=== PATIENT | male | born 1940 | race African-American/Black ===

== ENCOUNTER 2017-10-04 20:45 | Emergency (ER) | payer MEDICARE, OTHER ==
[2017-10-04 22:17] LABS: Troponin I Less than 0.010 ng/mL (< 0.028)
[2017-10-04] MEDS ORDERED: Aspirin 325 MG TAB ONE (22:20)
== END 2017-10-05 00:14 | disposition short-term general hospital (02) ==
LOC: ERS 20:45
DX: R07.9 Chest pain, unspecified (principal); E11.9 Type 2 diabetes mellitus without complications; K21.9 Gastro-esophageal reflux disease without esophagitis; E78.5 Hyperlipidemia, unspecified; I10 Essential (primary) hypertension; E66.9 Obesity, unspecified; Z79.899 Other long term (current) drug therapy; Z79.4 Long term (current) use of insulin
CPT/HCPCS: 36415; 93005

== ENCOUNTER 2021-06-28 09:29 | Inpatient (IN) | payer MEDICARE, MEDICAID ==
[2021-06-28] MEDS ORDERED: Acetaminophen 650 MG Suppository PR PRN (15:15)
[2021-06-28] MEDS ORDERED: hydrALAZINE 20 MG/ML VIAL SLOW IVP PRN (15:19)
[2021-06-28 15:23] VITALS: BMI 42.5
[2021-06-28] MEDS ORDERED: Cefepime 1 GM VIAL IVPB SCH (15:30)
[2021-06-28] MEDS ORDERED: Ondansetron PF 4 MG/2 ML Vial IVP PRN (16:42)
[2021-06-28] MEDS: Carvedilol 6.25 MG TAB PO SCH (18:14)
[2021-06-28] MEDS: Cefepime 2 GM in Sodium Chloride 0.9% 100 ML IVPB SCH (18:15)
[2021-06-28] MEDS ORDERED: fentaNYL Citrate/PF 100 MCG/2 ML SYRINGE ONE (19:43)
[2021-06-28] MEDS ORDERED: Phenylephrine 10 MG/ML VIAL ONE (19:44)
[2021-06-28] MEDS ORDERED: Lidocaine 1% PF 5 ML VIAL ONE (20:24)
[2021-06-28] MEDS ORDERED: Rocuronium Bromide 10 MG/ML (10ML VIAL) ONE (20:24)
[2021-06-28] MEDS ORDERED: PROPOFOL 200 MG/20 ML VIAL ONE (20:24)
[2021-06-28] MEDS ORDERED: CEFAZOLIN 1 GM VIAL ONE (20:50)
[2021-06-28] MEDS ORDERED: SUGAMMADEX SODIUM 200 MG/2 ML VIAL ONE (21:14)
[2021-06-28] MEDS ORDERED: Ondansetron HCl/PF 4 MG/2 ML Vial IVP PRN (21:38)
[2021-06-28] MEDS ORDERED: Promethazine HCl 25 MG/ML VIAL IM PRN (21:38)
[2021-06-28] MEDS ORDERED: Promethazine HCl 25 MG/ML VIAL IVPB PRN (21:38)
[2021-06-28] MEDS ORDERED: hydrALAZINE 20 MG/ML VIAL ONE (22:28)
[2021-06-28] MEDS ORDERED: Labetalol HCl 100 MG/20 ML VIAL ONE (22:48)
[2021-06-29] MEDS: Vancomycin HCl 1.75 GM in Sodium Chloride 0.9% 500 ML IVPB SCH ×2 (01:16→15:35)
[2021-06-29] MEDS: Acetaminophen 325 MG TAB PO PRN ×2 (01:16→21:17)
[2021-06-29] MEDS ORDERED: VANCOMYCIN 1.75 GM/350 ML BAG IVPB SCH (02:00)
[2021-06-29 04:35] LABS: #Basophils 0.1 thou/uL (0.0-0.2); #Monocytes 1.7 thou/uL (0.11-0.59); #Neutrophils 9.3 thou/uL (1.40-6.50); %Basophils 0.8 % (0.0-1.0); %Eosinophils 0.3 % (0.0-10.0); %Lymphocytes 20.9 % (21.0-51.0); Hemoglobin 12.1 g/dL (14.0-18.0); Mean Corpuscular HGB CONC 32.1 g/dL (32.0-36.0); Mean Corpuscular Hemoglobin 27.1 pg (27.0-31.0); Mean Corpuscular Volume 84.5 fL (78.0-98.0); Mean Platelet Volume 9.8 fL (7.4-10.4); Platelet Count 158 thou/uL (130-400); RBC Distribution Width 14.8 % (11.5-14.5); Red Blood Cell (RBC) Count 4.45 mill/uL (4.70-6.10); White Blood Cell (WBC) Count 14.2 thou/uL (4.8-10.8)
[2021-06-29 04:49] LABS: ALT (SGPT) 12 U/L (8-55); AST (SGOT) 18 U/L (5-34); Albumin 3.2 g/dL (3.4-4.8); Alkaline Phosphatase 71 U/L (40-110); Anion Gap 15 mmol/L (10-20); BUN (Urea Nitrogen) 8 mg/dL (8.4-25.7); Calc. Creatinine Clearance 175 mL/min (70-130); Calcium 8.5 mg/dL (7.8-10.44); Carbon Dioxide 19 mmol/L (23-31); Chloride 106 mmol/L (98-107); Globulin 2.9 g/dL (2.4-3.5); Glucose 152 mg/dL (83-110); Potassium 3.1 mmol/L (3.5-5.1); Protein, Total 6.1 g/dL (5.8-8.1); Sodium 137 mmol/L (136-145)
[2021-06-29] MEDS: Cefepime 2 GM in Sodium Chloride 0.9% 100 ML IVPB SCH ×2 (06:04→18:38)
[2021-06-29] MEDS ORDERED: Potassium Chloride 20 MEQ TAB PO SCH (09:45)
[2021-06-29] MEDS: Enoxaparin Sodium 40 MG/0.4 ML SYRINGE SC SCH (09:57)
[2021-06-29] MEDS: Ezetimibe 10 MG TAB PO SCH (09:58)
[2021-06-29] MEDS: traMADol HCl 50 MG TAB PO SCH (09:58)
[2021-06-29] MEDS: Aspirin Chewable 81 MG TAB PO SCH (09:58)
[2021-06-29] MEDS: Furosemide 20 MG TAB PO SCH (09:59)
[2021-06-29] MEDS: Carvedilol 6.25 MG TAB PO SCH ×2 (09:59→18:38)
[2021-06-29] MEDS: HumuLIN 70/30 (300 UNITS/3 ML VIAL) SC SCH (10:08)
[2021-06-29] MEDS: Insulin Glargine 30 UNITS/0.3 ML VIAL SC SCH (10:12)
[2021-06-29 13:57] LABS: Vancomycin, Trough 8.3 ug/mL
[2021-06-29] MEDS: VANCOMYCIN 2 GRAM/500 ML BAG 2 GM in Premix Bag 1 BAG IVPB SCH (18:09)
[2021-06-29] MEDS: Rosuvastatin 20 MG TAB PO SCH (21:18)
[2021-06-29] MEDS ORDERED: Ketorolac Tromethamine 30 MG/ML VIAL IVP SCH (22:15)
[2021-06-30] MEDS ORDERED: VANCOMYCIN 2 GRAM/500 ML BAG 2 GM in Premix Bag 1 BAG IVPB SCH (03:00)
[2021-06-30] MEDS: Acetaminophen 325 MG TAB PO PRN ×2 (03:37→10:55)
[2021-06-30] MEDS: VANCOMYCIN 2 GRAM/500 ML BAG 2 GM in Premix Bag 1 BAG IVPB SCH (06:27)
[2021-06-30] MEDS: Cefepime 2 GM in Sodium Chloride 0.9% 100 ML IVPB SCH ×2 (06:39→20:55)
[2021-06-30] MEDS: traMADol HCl 50 MG TAB PO SCH (09:09)
[2021-06-30] MEDS: Ezetimibe 10 MG TAB PO SCH (09:11)
[2021-06-30] MEDS: Aspirin Chewable 81 MG TAB PO SCH (09:11)
[2021-06-30] MEDS: Furosemide 20 MG TAB PO SCH (09:12)
[2021-06-30] MEDS: Carvedilol 6.25 MG TAB PO SCH ×2 (09:12→17:57)
[2021-06-30] MEDS: Enoxaparin Sodium 40 MG/0.4 ML SYRINGE SC SCH (09:13)
[2021-06-30] MEDS: Insulin Glargine 30 UNITS/0.3 ML VIAL SC SCH (09:14)
[2021-06-30 09:20] LABS: #Basophils 0.1 thou/uL (0.0-0.2); #Neutrophils 11.5 thou/uL (1.40-6.50); %Basophils 0.4 % (0.0-1.0); %Eosinophils 0.1 % (0.0-10.0); %Lymphocytes 18.2 % (21.0-51.0); %Monocytes 11.9 % (0.0-10.0); %Neutrophils 69.3 % (42.0-75.0); Hemoglobin 12.4 g/dL (14.0-18.0); Mean Corpuscular HGB CONC 31.6 g/dL (32.0-36.0); Mean Corpuscular Hemoglobin 26.3 pg (27.0-31.0); Mean Corpuscular Volume 83.4 fL (78.0-98.0); Mean Platelet Volume 9.6 fL (7.4-10.4); Platelet Count 181 thou/uL (130-400); RBC Distribution Width 14.7 % (11.5-14.5); Red Blood Cell (RBC) Count 4.71 mill/uL (4.70-6.10); White Blood Cell (WBC) Count 16.6 thou/uL (4.8-10.8)
[2021-06-30 09:23] LABS: Anion Gap 13 mmol/L (10-20); BUN (Urea Nitrogen) 11 mg/dL (8.4-25.7); Calc. Creatinine Clearance 171 mL/min (70-130); Calcium 8.6 mg/dL (7.8-10.44); Carbon Dioxide 22 mmol/L (23-31); Chloride 104 mmol/L (98-107); Glucose 157 mg/dL (83-110); Sodium 136 mmol/L (136-145); Uric Acid 3.6 mg/dL (3.5-7.2)
[2021-06-30 09:27] LABS: Potassium 2.9 mmol/L (3.5-5.1)
[2021-06-30] MEDS ORDERED: Potassium Chloride 20 MEQ TAB PO SCH ×2 (09:45→13:00)
[2021-06-30] MEDS: HumuLIN 70/30 (300 UNITS/3 ML VIAL) SC SCH (10:42)
[2021-06-30] MEDS: HYDROcodone/Acetaminophen 5/325 mg Tablet PO PRN ×2 (12:23→20:28)
[2021-06-30] MEDS ORDERED: VANCOMYCIN 2 GRAM/400 ML BAG 2 GM in Premix Bag 1 BAG IVPB SCH (15:00)
[2021-06-30] MEDS ORDERED: Furosemide 40 MG/4 ML VIAL SLOW IVP SCH (17:30)
[2021-06-30 17:48] LABS: Actual Bicarbonate (HCO3a) 25.1 mEq/L (22-28); Base Excess (BEa) 2.6 mEq/L (-2.0 to +3.0); CO2 Tension 31.9 mmHg (35.0-45.0); Calcium, Ionized (arterial) 1.13 mmol/L (1.12-1.30); Carboxyhemoglobin (COHb) 0.7 gm% (0.0-3.0); Hemoglobin (Hb) 12.3 g/dL (14.0-18.0); O2 Tension (PaO2), arterial 73.5 mmHg (> 70.0); pH, Arterial 7.51 (7.35-7.45)
[2021-06-30 17:51] LABS: ALV-art Gradient 36.355 mmHg (0-20); Puncture Site RRA
[2021-06-30] MEDS: Rosuvastatin 20 MG TAB PO SCH (20:29)
[2021-07-01 02:29] LABS: #Lymphocytes 3.2 thou/uL (1.20-3.40); #Monocytes 1.8 thou/uL (0.11-0.59); #Neutrophils 9.7 thou/uL (1.40-6.50); %Basophils 0.2 % (0.0-1.0); %Eosinophils 0.3 % (0.0-10.0); %Lymphocytes 21.3 % (21.0-51.0); %Monocytes 12.4 % (0.0-10.0); %Neutrophils 65.7 % (42.0-75.0); Hemoglobin 11.5 g/dL (14.0-18.0); Mean Corpuscular HGB CONC 32.7 g/dL (32.0-36.0); Mean Corpuscular Hemoglobin 27.2 pg (27.0-31.0); Mean Corpuscular Volume 83.3 fL (78.0-98.0); Mean Platelet Volume 9.6 fL (7.4-10.4); Platelet Count 170 thou/uL (130-400); RBC Distribution Width 14.7 % (11.5-14.5); Red Blood Cell (RBC) Count 4.23 mill/uL (4.70-6.10); White Blood Cell (WBC) Count 14.8 thou/uL (4.8-10.8)
[2021-07-01 02:56] LABS: Anion Gap 12 mmol/L (10-20); BUN (Urea Nitrogen) 9 mg/dL (8.4-25.7); Calc. Creatinine Clearance 151 mL/min (70-130); Calcium 8.4 mg/dL (7.8-10.44); Carbon Dioxide 23 mmol/L (23-31); Chloride 103 mmol/L (98-107); Glucose 236 mg/dL (83-110); Magnesium 1.9 mg/dL (1.6-2.6); Potassium 3.4 mmol/L (3.5-5.1); Sodium 135 mmol/L (136-145)
[2021-07-01] MEDS: VANCOMYCIN 2 GRAM/500 ML BAG 2 GM in Premix Bag 1 BAG IVPB SCH ×2 (04:35→17:56)
[2021-07-01] MEDS ORDERED: Potassium Chloride 20 MEQ TAB PO SCH ×2 (07:30→22:45)
[2021-07-01] MEDS: Cefepime 2 GM in Sodium Chloride 0.9% 100 ML IVPB SCH ×2 (08:36→21:05)
[2021-07-01] MEDS: Aspirin Chewable 81 MG TAB PO SCH (08:38)
[2021-07-01] MEDS: Carvedilol 6.25 MG TAB PO SCH ×2 (08:39→17:56)
[2021-07-01] MEDS: traMADol HCl 50 MG TAB PO SCH (08:40)
[2021-07-01] MEDS: Ezetimibe 10 MG TAB PO SCH (08:42)
[2021-07-01] MEDS: Furosemide 20 MG TAB PO SCH (08:42)
[2021-07-01] MEDS: Insulin Glargine 30 UNITS/0.3 ML VIAL SC SCH (08:43)
[2021-07-01] MEDS: Enoxaparin Sodium 40 MG/0.4 ML SYRINGE SC SCH (10:40)
[2021-07-01] MEDS ORDERED: Dextrose 5% in Water 1,000 ML IV PRN (13:45)
[2021-07-01] MEDS ORDERED: Dextrose 50% Abboject 50 ML SYRINGE SLOW IVP PRN (13:45)
[2021-07-01] MEDS ORDERED: HumaLOG 300 UNITS/3 ML VIAL SC PRN (13:45)
[2021-07-01] MEDS: HumaLOG 300 UNITS/3 ML VIAL SC PRN (18:12)
[2021-07-01] MEDS: Acetaminophen 325 MG TAB PO PRN (21:00)
[2021-07-01] MEDS: Rosuvastatin 20 MG TAB PO SCH (21:01)
[2021-07-01 22:40] LABS: Anion Gap 11 mmol/L (10-20); BUN (Urea Nitrogen) 8 mg/dL (8.4-25.7); Calc. Creatinine Clearance 153 mL/min (70-130); Calcium 8.4 mg/dL (7.8-10.44); Carbon Dioxide 25 mmol/L (23-31); Chloride 102 mmol/L (98-107); Glucose 221 mg/dL (83-110); Potassium 3.3 mmol/L (3.5-5.1); Sodium 135 mmol/L (136-145)
[2021-07-02 02:43] LABS: Bilirubin Negative (Negative); Blood, Urine 2+ (Negative); Clarity Clear (Clear); Glucose, Urine (Dipstick) >=1000 mg/dL (Negative); Ketone, Urine Negative (Negative); Leukocyte Negative Leu/uL (Negative); Nitrite Negative (Negative); Protein, Urine (Dipstick) 50 mg/dL (Neg-Trace); Specific Gravity, Urine 1.019 (1.002-1.036); Squamous Epithelial None Seen HPF (0-3); Urobilinogen Normal mg/dL (Less than 2)
[2021-07-02 02:58] LABS: Bacteria/HPF None Seen HPF (None Seen); RBC/HPF 0-3 HPF (0-3); WBC/HPF 0-3 HPF (0-3)
[2021-07-02 02:59] LABS: Urine Culture Reflex No No
[2021-07-02] MEDS: VANCOMYCIN 2 GRAM/500 ML BAG 2 GM in Premix Bag 1 BAG IVPB SCH ×2 (03:28→18:05)
[2021-07-02] MEDS: HumaLOG 300 UNITS/3 ML VIAL SC PRN ×3 (06:02→18:05)
[2021-07-02 08:12] LABS: #Eosinphils 0.1 thou/uL (0.0-0.7); #Lymphocytes 2.5 thou/uL (1.20-3.40); #Monocytes 1.9 thou/uL (0.11-0.59); #Neutrophils 11.5 thou/uL (1.40-6.50); %Basophils 0.3 % (0.0-1.0); %Eosinophils 0.4 % (0.0-10.0); %Lymphocytes 15.4 % (21.0-51.0); %Neutrophils 71.9 % (42.0-75.0); Hemoglobin 11.6 g/dL (14.0-18.0); Mean Corpuscular HGB CONC 32.3 g/dL (32.0-36.0); Mean Corpuscular Hemoglobin 27.3 pg (27.0-31.0); Mean Corpuscular Volume 84.4 fL (78.0-98.0); Platelet Count 180 thou/uL (130-400); RBC Distribution Width 14.8 % (11.5-14.5); Red Blood Cell (RBC) Count 4.24 mill/uL (4.70-6.10)
[2021-07-02 08:28] LABS: Anion Gap 12 mmol/L (10-20); BUN (Urea Nitrogen) 6 mg/dL (8.4-25.7); Calc. Creatinine Clearance 159 mL/min (70-130); Calcium 8.7 mg/dL (7.8-10.44); Carbon Dioxide 25 mmol/L (23-31); Chloride 104 mmol/L (98-107); Glucose 220 mg/dL (83-110); Potassium 3.5 mmol/L (3.5-5.1); Sodium 137 mmol/L (136-145)
[2021-07-02] MEDS: Carvedilol 6.25 MG TAB PO SCH ×2 (09:42→18:05)
[2021-07-02] MEDS: Cefepime 2 GM in Sodium Chloride 0.9% 100 ML IVPB SCH ×2 (09:42→22:07)
[2021-07-02] MEDS: Enoxaparin Sodium 40 MG/0.4 ML SYRINGE SC SCH (09:42)
[2021-07-02] MEDS: Insulin Glargine 30 UNITS/0.3 ML VIAL SC SCH ×2 (09:42→10:09)
[2021-07-02] MEDS: Ezetimibe 10 MG TAB PO SCH (09:42)
[2021-07-02] MEDS: Aspirin Chewable 81 MG TAB PO SCH (09:42)
[2021-07-02] MEDS: Furosemide 20 MG TAB PO SCH (09:42)
[2021-07-02] MEDS: traMADol HCl 50 MG TAB PO SCH (09:43)
[2021-07-02 14:19] LABS: Vancomycin, Trough 12.2 ug/mL
[2021-07-02] MEDS: Acetaminophen 325 MG TAB PO PRN (18:05)
[2021-07-02] MEDS: Rosuvastatin 20 MG TAB PO SCH (22:08)
[2021-07-03] MEDS: VANCOMYCIN 2 GRAM/500 ML BAG 2 GM in Premix Bag 1 BAG IVPB SCH (03:59)
[2021-07-03 04:30] LABS: #Basophils 0.2 thou/uL (0.0-0.2); #Eosinphils 0.2 thou/uL (0.0-0.7); #Monocytes 1.7 thou/uL (0.11-0.59); #Neutrophils 9.6 thou/uL (1.40-6.50); %Eosinophils 1.2 % (0.0-10.0); %Lymphocytes 20.6 % (21.0-51.0); %Monocytes 11.3 % (0.0-10.0); %Neutrophils 65.9 % (42.0-75.0); Hemoglobin 10.7 g/dL (14.0-18.0); Mean Corpuscular HGB CONC 31.6 g/dL (32.0-36.0); Mean Corpuscular Hemoglobin 26.8 pg (27.0-31.0); Mean Corpuscular Volume 84.8 fL (78.0-98.0); Mean Platelet Volume 9.2 fL (7.4-10.4); Platelet Count 193 thou/uL (130-400); RBC Distribution Width 14.6 % (11.5-14.5); Red Blood Cell (RBC) Count 4.02 mill/uL (4.70-6.10); White Blood Cell (WBC) Count 14.5 thou/uL (4.8-10.8)
[2021-07-03 04:53] LABS: Anion Gap 11 mmol/L (10-20); BUN (Urea Nitrogen) 8 mg/dL (8.4-25.7); Calc. Creatinine Clearance 147 mL/min (70-130); Calcium 8.6 mg/dL (7.8-10.44); Carbon Dioxide 26 mmol/L (23-31); Chloride 101 mmol/L (98-107); Glucose 198 mg/dL (83-110); Potassium 3.3 mmol/L (3.5-5.1); Sodium 135 mmol/L (136-145)
[2021-07-03] MEDS: HumaLOG 300 UNITS/3 ML VIAL SC PRN ×3 (07:23→18:22)
[2021-07-03] MEDS: Ezetimibe 10 MG TAB PO SCH (09:15)
[2021-07-03] MEDS: Aspirin Chewable 81 MG TAB PO SCH (09:15)
[2021-07-03] MEDS: Enoxaparin Sodium 40 MG/0.4 ML SYRINGE SC SCH (09:15)
[2021-07-03] MEDS: Carvedilol 6.25 MG TAB PO SCH ×2 (09:16→18:21)
[2021-07-03] MEDS: Furosemide 20 MG TAB PO SCH (09:37)
[2021-07-03] MEDS: Cefepime 2 GM in Sodium Chloride 0.9% 100 ML IVPB SCH (09:37)
[2021-07-03] MEDS: traMADol HCl 50 MG TAB PO SCH (09:38)
[2021-07-03] MEDS: Insulin Glargine 30 UNITS/0.3 ML VIAL SC SCH (09:59)
[2021-07-03] MEDS: Rosuvastatin 20 MG TAB PO SCH (21:49)
[2021-07-03] MEDS: Cephalexin 250 MG CAP PO SCH (21:49)
[2021-07-04] MEDS: HYDROcodone/Acetaminophen 5/325 mg Tablet PO PRN ×2 (00:51→12:06)
[2021-07-04 04:24] LABS: #Eosinphils 0.2 thou/uL (0.0-0.7); #Lymphocytes 2.3 thou/uL (1.20-3.40); #Monocytes 1.6 thou/uL (0.11-0.59); #Neutrophils 7.9 thou/uL (1.40-6.50); %Basophils 0.3 % (0.0-1.0); %Eosinophils 1.9 % (0.0-10.0); %Lymphocytes 19.4 % (21.0-51.0); %Monocytes 12.9 % (0.0-10.0); %Neutrophils 65.5 % (42.0-75.0); Hemoglobin 11.1 g/dL (14.0-18.0); Mean Corpuscular HGB CONC 31.9 g/dL (32.0-36.0); Mean Corpuscular Volume 84.6 fL (78.0-98.0); Mean Platelet Volume 9.3 fL (7.4-10.4); Platelet Count 201 thou/uL (130-400); RBC Distribution Width 14.6 % (11.5-14.5); White Blood Cell (WBC) Count 12.1 thou/uL (4.8-10.8)
[2021-07-04 04:46] LABS: Anion Gap 13 mmol/L (10-20); BUN (Urea Nitrogen) 10 mg/dL (8.4-25.7); Calc. Creatinine Clearance 162 mL/min (70-130); Calcium 8.7 mg/dL (7.8-10.44); Carbon Dioxide 27 mmol/L (23-31); Chloride 98 mmol/L (98-107); Glucose 211 mg/dL (83-110); Potassium 3.2 mmol/L (3.5-5.1); Sodium 135 mmol/L (136-145)
[2021-07-04] MEDS: HumaLOG 300 UNITS/3 ML VIAL SC PRN ×3 (05:50→17:37)
[2021-07-04] MEDS: traMADol HCl 50 MG TAB PO SCH (09:04)
[2021-07-04] MEDS: Aspirin Chewable 81 MG TAB PO SCH (09:04)
[2021-07-04] MEDS: Carvedilol 6.25 MG TAB PO SCH ×2 (09:04→16:08)
[2021-07-04] MEDS: Ezetimibe 10 MG TAB PO SCH (09:04)
[2021-07-04] MEDS: Cephalexin 250 MG CAP PO SCH (09:05)
[2021-07-04] MEDS: Insulin Glargine 30 UNITS/0.3 ML VIAL SC SCH (09:05)
[2021-07-04] MEDS: Furosemide 20 MG TAB PO SCH (09:05)
[2021-07-04] MEDS: Enoxaparin Sodium 40 MG/0.4 ML SYRINGE SC SCH (09:06)
[2021-07-04] MEDS ORDERED: Potassium Chloride 20 MEQ TAB PO SCH ×2 (10:00→13:00)
[2021-07-04 16:09] VITALS: BP 123/58
[2021-07-04 16:27] VITALS: TEMP 98.8
== END 2021-07-04 19:20 | DRG 853 ==
LOC: SURG B 09:29 → CCU 20:46 → SURG B 20:47 → 2NO 23:20
PROVIDERS: ADMIT Internal Medicine; ATTEND Internal Medicine
PROC: 0R9M0ZZ Drainage of Left Elbow Joint, Open Approach (ICD-10-PCS; principal; 2021-06-28)
PROC: 3E03329 Introduction of Other Anti-infective into Peripheral Vein, Percutaneous Approach (ICD-10-PCS; 2021-06-28)
DX: A41.9 Sepsis, unspecified organism (principal); G93.41 Metabolic encephalopathy; M00.9 Pyogenic arthritis, unspecified; L03.114 Cellulitis of left upper limb; E87.2 Acidosis; I42.9 Cardiomyopathy, unspecified; I50.22 Chronic systolic (congestive) heart failure; I69.354 Hemiplegia and hemiparesis following cerebral infarction affecting left non-dominant side; L02.414 Cutaneous abscess of left upper limb; J98.11 Atelectasis; I25.10 Atherosclerotic heart disease of native coronary artery without angina pectoris; S52.124A Nondisplaced fracture of head of right radius, initial encounter for closed fracture; R65.20 Severe sepsis without septic shock; S52.134A Nondisplaced fracture of neck of right radius, initial encounter for closed fracture; E11.65 Type 2 diabetes mellitus with hyperglycemia; E78.5 Hyperlipidemia, unspecified; E87.6 Hypokalemia; I11.0 Hypertensive heart disease with heart failure; M10.9 Gout, unspecified; F03.90 Unspecified dementia, unspecified severity, without behavioral disturbance, psychotic disturbance, mood disturbance, and anxiety; W19.XXXA Unspecified fall, initial encounter; Z28.21 Immunization not carried out because of patient refusal; Z79.899 Other long term (current) drug therapy; Z79.82 Long term (current) use of aspirin; Z79.4 Long term (current) use of insulin
CPT/HCPCS: 36415; 36416; 36600; 71045; 71275; 76000; 80048; 80053; 80202; 81001; 82805; 83735; 83880; 84550; 85025; 87040; 87070; 87205; 93970; J0360; J0690; J0692; J1650; J1815; J1885; J1940; J2370; J2704; J3370; J3490; J7030

== ENCOUNTER 2024-12-15 12:53 | Emergency (ER) | payer OTHER ==
[2024-12-15 13:52] LABS: #Basophils Less than 0.03 10x3/uL (0.0-0.2); #Eosinophils 0.13 10x3/uL (0.0-0.7); #Monocytes 0.86 10x3/uL (0.11-0.59); #Neutrophils 4.58 10x3/uL (1.40-6.50); %Basophils 0.3 % (0.0-1.0); %Eosinophils 1.7 % (0.0-10.0); %Lymphocytes 24.5 % (21.0-51.0); %Monocytes 11.6 % (0.0-10.0); %Neutrophils 61.5 % (42.0-75.0); Hematocrit 34.9 % (42.0-52.0); Hemoglobin 11.2 g/dL (14.0-18.0); Mean Corpuscular Hemoglobin 25.5 pg (27.0-31.0); Mean Corpuscular Volume 79.5 fL (78.0-98.0); Platelet Count 154 10x3/uL (130-400); Red Blood Cell (RBC) Count 4.39 mill/uL (4.70-6.10); White Blood Cell (WBC) Count 7.44 10x3/uL (4.8-10.8)
[2024-12-15 14:11] LABS: ALT (SGPT) 21 U/L (Less than 45); AST (SGOT) 24 U/L (11-34); Albumin 3.3 g/dL (3.1-4.5); Alkaline Phosphatase 114 U/L (40-110); Anion Gap 9 mmol/L (10-20); BUN (Urea Nitrogen) 12 mg/dL (8.4-25.7); Bilirubin, Total 1.6 mg/dL (0.3-1.2); Calc. Creatinine Clearance 0 mL/min (70-130); Calcium 8.9 mg/dL (7.8-10.44); Carbon Dioxide 27 mmol/L (23-31); Chloride 107 mmol/L (98-107); Globulin 3.1 g/dL (2.4-3.5); Glucose 59 mg/dL (83-110); Lipase 14 U/L (8-78); Potassium 4.0 mmol/L (3.5-5.1); Sodium 139 mmol/L (136-145)
[2024-12-15] MEDS ORDERED: Dextrose 50% Abboject 50 ML SYRINGE ONE (15:53)
[2024-12-15 16:09] LABS: Bacteria/HPF None Seen HPF (None Seen); CAUTI Indications for Culture Acute Hematuria; Glucose, Urine (Dipstick) Normal (Negative); Leukocyte Negative Leu/uL (Negative); Protein, Urine (Dipstick) Negative (Neg-Trace); RBC/HPF 0-3 HPF (0-3); Specific Gravity, Urine 1.009 (1.002-1.036)
[2024-12-15 16:15] LABS: Urine Culture Reflex No No
== END 2024-12-15 16:54 | disposition home or self-care (01) ==
LOC: ERS 12:53
DX: E86.1 Hypovolemia (principal); E11.649 Type 2 diabetes mellitus with hypoglycemia without coma; R00.1 Bradycardia, unspecified; Z86.73 Personal history of transient ischemic attack (TIA), and cerebral infarction without residual deficits; E66.9 Obesity, unspecified; K21.9 Gastro-esophageal reflux disease without esophagitis; I25.10 Atherosclerotic heart disease of native coronary artery without angina pectoris; I10 Essential (primary) hypertension; Z79.899 Other long term (current) drug therapy; Z79.02 Long term (current) use of antithrombotics/antiplatelets
CPT/HCPCS: 71045; 80053; 81001; 82962; 83690; 83880; 84484; 85025; 93005; 94760; J7999; 36416; 96361; 96374